=== PATIENT | female | born 1995 | race Caucasian/White ===

== ENCOUNTER 2018-03-24 20:25 | Emergency (ER) | payer BC ==
--- NOTE | 2018-03-24 20:56 | EDPHY ---
H & P Stated Complaint: LABIA ABSCESS X 1.5 WKS Time Seen by Provider: 03/24/18 20:55 HPI/ROS: HPI: This is a 23-year-old female who presents with Chief Complaint: Labia abscess x1 and half weeks Location: rectal Quality: Abscess Duration: 1 week Signs and Symptoms: no fever, no nausea, no vomiting, no hematemesis, no blood in stool, no abdominal bloating, no diarrhea, no back pain, no urinary symptoms , no vaginal bleeding/discharge, no indigestion, no chest pain, no shortness of breath Timing: Acute, worsening Severity: Moderate Context: Patient recently moved from [place] to [place], [place] presents with 1 week history of abscess near her rectum. She recently waxed her genital area 1 week ago. Patient is sexually active but denies concern for sexually transmitted infection. Patient went to urgent care but they directed the patient to the emergency room for further treatment. Modifying Factors: None Comment: ROS: A comprehensive 10 system review of systems is otherwise negative aside from elements mentioned in the history of present illness. MEDICAL/SURGICAL/SOCIAL HISTORY: Medical history: Generally healthy. Does not take any regular medications. LMP 2-3 weeks ago. Surgical history: Left arm surgery with hardware placement Social history: Nonsmoker. Family history noncontributory. CONSTITUTIONAL: Well-developed, well-nourished, young adult white female, awake and alert, no obvious distress HEENT: Atraumatic and normocephalic, PERRL, EOMI. Nares patent; no rhinorrhea; no nasal mucosal edema. Tympanic membranes clear. Oropharynx clear, no exudate and moist pink mucosa. Airway patent. No lymphadenopathy. No meningismus. Cardiovascular: Normal S1/S2, regular rate, regular rhythm, without murmur rub or gallop. PULMONARY/CHEST: Symmetrical and nontender. Clear to auscultation bilaterally. Good air movement. No accessory muscle usage. ABDOMEN: Soft, nondistended, nontender, no rebound, no guarding, no peritoneal signs, no masses or organomegaly. No CVAT. PELVIC: normal external genitalia, no discharge, no bleeding. The exam was performed with a manager marketing. RECTAL: Good sphincter tone, light brown stool in vault, no external hemorrhoids , small abscess noted in the superior portion to the rectum in the gluteal cleft ; fluctuance appreciated; no fissures, no palpable masses, performed with manager marketingradha EXTREMITIES: 2/2 pulses, strength 5/5, no deformities, no clubbing, no cyanosis or edema. NEUROLOGICAL: no focal neuro deficits. GCS 15. SKIN: Warm and dry, no erythema. no rash. Good capillary refill. Source: Patient Exam Limitations: No limitations - Personal History LMP (Females 10-55): 22-28 Days Ago Current Tetanus Diphtheria and Acellular Pertussis (TDAP): Yes - Medical/Surgical History Hx Asthma: No Hx Chronic Respiratory Disease: No Hx Diabetes: No Hx Cardiac Disease: No Hx Renal Disease: No Hx Cirrhosis: No Hx Alcoholism: No Hx HIV/AIDS: No Hx Splenectomy or Spleen Trauma: No Other PMH: 3 L ARM SX W/ HARDWARE - Social History Smoking Status: Never smoked Constitutional: Initial Vital Signs Temperature (C) 36.7 C 03/24/18 20:31 Heart Rate 92 03/24/18 20:31 Respiratory Rate 16 03/24/18 20:31 Blood Pressure 115/85 H 03/24/18 20:31 O2 Sat (%) 98 03/24/18 20:31 O2 Delivery Mode Room Air Allergies/Adverse Reactions: No Known Allergies Allergy (Unverified 03/24/18 20:30) Home Medications: Medication Instructions Recorded Amoxicillin/Clavulanate Pot 875 mg PO BID #14 tab 03/24/18 [Augmentin 875 MG TAB (*)] Medical Decision Making Procedures: Procedure: Abscess drainage. The patient's abscess was located on the perineum. Let topical and local anesthesia provided with 5 cc of 1% lidocaine without epinephrine. I obtained verbal consent from the patient to drain the abscess who was informed about the possibility of bleeding and pain. The abscess was incised with #11 scalpel and a 10 mL amount of purulent drainage was expressed. I irrigated the wound and no packing was placed. The patient tolerated the procedure well. The procedure was performed by myself. ED Course/Re-evaluation: Vital signs reviewed and stable upon arrival. No systemic signs. I and D performed by myself at bedside. Anorectal abscess; Augmentin given prescription for same Verbal and written wound care instructions provided including Sitz baths Given a prepack of Percocet. This patient was seen under the supervision of my secondary supervising physician. I evaluated care for this patient independently. Discussed this patient with Dr. Stovall who did not see the patient. Differential Diagnosis: Differential diagnosis includes but is not limited to abscess. - Data Points Medications Given: Discontinued Medications Tetracaine/Epinephrine/Lidocaine (Let Gel Topical) 1 ea TP ONCE ONE Stop: 03/24/18 21:12 Last Admin: 03/24/18 21:14 Dose: 1 ea Departure - Departure Disposition: Home, Routine, Self-Care Clinical Impression: Keyla-rectal abscess Condition: Good Instructions: Rectal Abscess (ED), Abscess Incision and Drainage (DC), Sitz Bath (DC) Additional Instructions: Consume a minimum of 8-10 glasses of water or electrolyte fluid replacement drinks that include Gatorade, Powerade, Pedialyte. Take Tylenol 650 mg every 4 hours and/or Ibuprofen 600 mg every 8 hours with food as needed for pain. Use Percocet every 6 hours as needed for severe/break through pain. Perform Sitz Baths for 15-30 minutes at a time; 2-3 times per day for the next 1 -2 days. Take antibiotics as directed. Do not skip a dose. Do not shave or wax the genital area. Establish care with primary care provider/OBGYN. If Symptoms do not improve in the next 7-10 days, follow-up with General surgery Return to the ER immediately if you experience redness, red streaks, have fevers /chills, flu like symptoms, limited range of motion, or any other symptoms that concern you. Referrals: Ev Nagel MD [Medical Doctor] - As per Instructions Prescriptions: Amoxicillin/Clavulanate Pot [Augmentin 875 MG TAB (*)] 875 mg PO BID #14 tab
[2018-03-24] MEDS ORDERED: LET GEL TOPICAL 1 EA SYR TP ONE ×2 (21:08→21:11)
[2018-03-24] MEDS ORDERED: ONDANSETRON DISINTEGRATING 4 MG TAB PO ONE (21:51)
[2018-03-24] MEDS ORDERED: AMOXICILLIN/CLAVULANATE POT 875/125 MG TAB PO ONE (21:51)
[2018-03-24] MEDS ORDERED: OXYCODONE/APAP 5/325MG PREPACK#4 BTL TAKEHOME ONE (21:54)
[2018-03-24 22:18] VITALS: BP 102/64
== END 2018-03-24 22:20 | disposition home or self-care (01) ==
PROC: 0D9P3ZZ Drainage of Rectum, Percutaneous Approach (ICD-10-PCS; principal; 2018-03-24)
DX: K61.1 Rectal abscess (principal)